=== PATIENT | female | born 1965 | race Hispanic/Latino ===

== ENCOUNTER 2020-09-27 13:19 | Emergency (ER) | payer MEDICAID ==
[~2020-09-27] VITALS: Ht 165.1 cm; Wt 86.2 kg
[2020-09-27 13:45] LABS: BASOPHILS % (AUTO) 0.4 % (0.0-5.0); EOSINOPHILS % (AUTO) 2.3 % (0.0-8.0); HEMATOCRIT 41.4 % (36-48); LYMPHOCYTES % (AUTO) 19.1 % (21.0-51.0); MEAN CORPUSCULAR HGB CONC 33.1 g/dL (32.0-36.0); MEAN CORPUSCULAR VOLUME 87.7 fL (79-99); MONOCYTES % (AUTO) 6.5 % (3.0-13.0); NEUTROPHILS % (AUTO) 71.3 % (40.0-77.0); PLATELET COUNT (AUTO) 201 K/uL (130-400); RED BLOOD CELL COUNT(AUTO) 4.72 MIL/uL (4.00-5.50); RED CELL DISTRIBUTION WIDTH 12.8 % (11.0-15.5); WHITE BLOOD COUNT (AUTO) 5.7 K/uL (4.8-10.8)
[2020-09-27 13:53] LABS: CREATININE 1.1 mg/dL (0.5-1.5); POTASSIUM 3.7 mmol/L (3.5-5.1)
[2020-09-27 13:58] LABS: ALBUMIN 4.2 g/dL (3.5-5.0); BILIRUBIN,TOTAL 0.6 mg/dL (0.2-1.0); TOTAL PROTEIN, SERUM 8.2 g/dL (6.0-8.3)
[2020-09-27 14:09] LABS: PARTIAL THROMBOPLASTIN TIME 25.4 SEC (26.3-35.5)
[2020-09-27] MEDS ORDERED: METHYLPREDNISOLONE SOD SUCC 125MG/2ML VIAL ONE (14:56)
[2020-09-27] MEDS ORDERED: NIFEDIPINE ER 30 MG TAB PO ONE (15:05)
[2020-09-27] MEDS ORDERED: NIFEDIPINE 10 MG CAP ONE (15:05)
[2020-09-27] MEDS ORDERED: ACYCLOVIR 800 MG TABLET PO SCH (15:30)
[2020-09-27] MEDS ORDERED: LABETALOL 20 MG/4 ML DISP.SYRIN IV ONE (15:33)
[2020-09-27 15:51] LABS: INR 0.98 (0.85-1.15); PROTHROMBIN TIME 10.6 SEC (9.6-11.6)
== END 2020-09-27 15:55 | disposition home or self-care (01) ==
LOC: EDH 13:19
DX: G51.0 Bell's palsy (principal); F20.0 Paranoid schizophrenia
CPT/HCPCS: 36415; 70450; 71045; 80053; 82550; 83721; 84484; 85025; 85610; 85730; 93005; 96374; 96375; 99285; J2930

== ENCOUNTER 2021-03-06 15:25 | Emergency (ER) | payer MEDICAID ==
[2021-03-06 16:01] LABS: BASOPHILS % (AUTO) 0.3 % (0.0-5.0); EOSINOPHILS % (AUTO) 0.8 % (0.0-8.0); LYMPHOCYTES % (AUTO) 10.3 % (21.0-51.0); MEAN CORPUSCULAR HEMOGLOBIN 29.6 pg (27.0-33.0); MEAN CORPUSCULAR HGB CONC 32.4 g/dL (32.0-36.0); MEAN CORPUSCULAR VOLUME 91.3 fL (79-99); NEUTROPHILS % (AUTO) 81.3 % (40.0-77.0); PLATELET COUNT (AUTO) 92 K/uL (130-400); RED CELL DISTRIBUTION WIDTH 13.7 % (11.0-15.5); WHITE BLOOD COUNT (AUTO) 3.9 K/uL (4.8-10.8)
[2021-03-06 16:11] LABS: RAPID GROUP A STREP NEGATIVE (NEGATIVE)
[2021-03-06 16:57] LABS: CREATININE 1.6 mg/dL (0.5-1.5); POTASSIUM 3.4 mmol/L (3.5-5.1)
[2021-03-06 17:03] LABS: ALBUMIN 4.3 g/dL (3.5-5.0); BILIRUBIN,TOTAL 0.6 mg/dL (0.2-1.0); TOTAL PROTEIN, SERUM 8.1 g/dL (6.0-8.3)
== END 2021-03-06 17:12 | disposition left against medical advice (07) ==
LOC: EDH 15:25
DX: R42 Dizziness and giddiness (principal); R53.1 Weakness; Z20.822 Contact with and (suspected) exposure to COVID-19
CPT/HCPCS: 36415; 71045; 80053; 82550; 84484; 85025; 87426; 87804; 87880; 96360

== ENCOUNTER 2022-08-07 03:29 | Emergency (ER) | payer MEDICAID ==
[2022-08-07 04:58] LABS: BASOPHILS % (AUTO) 0.2 % (0.0-5.0); EOSINOPHILS % (AUTO) 1.3 % (0.0-8.0); HEMATOCRIT 37.8 % (36-48); LYMPHOCYTES % (AUTO) 19.6 % (21.0-51.0); MEAN CORPUSCULAR HEMOGLOBIN 29.6 pg (27.0-33.0); MEAN CORPUSCULAR HGB CONC 33.9 g/dL (32.0-36.0); MEAN CORPUSCULAR VOLUME 87.5 fL (79-99); MONOCYTES % (AUTO) 7.8 % (3.0-13.0); NEUTROPHILS % (AUTO) 70.9 % (40.0-77.0); PLATELET COUNT (AUTO) 159 K/uL (130-400); RED BLOOD CELL COUNT(AUTO) 4.32 MIL/uL (4.00-5.50); RED CELL DISTRIBUTION WIDTH 13.2 % (11.0-15.5); WHITE BLOOD COUNT (AUTO) 5.4 K/uL (4.8-10.8)
[2022-08-07 05:09] LABS: CARBON DIOXIDE 32 mmol/L (21-32); CHLORIDE 104 mmol/L (101-111); CREATININE 0.9 mg/dL (0.5-1.5); GLOMERULAR FILTR. RATE CALC 69 mL/min (>60); GLUCOSE,RANDOM 94 mg/dL (70-105); POTASSIUM 3.7 mmol/L (3.5-5.1); SODIUM SERUM 140 mmol/L (136-145); UREA NITROGEN, BLOOD 21 mg/dL (7-18)
[2022-08-07 05:14] LABS: ALANINE AMINOTRANSFERASE 29 U/L (12-78); ALBUMIN 4.1 g/dL (3.5-5.0); ALCOHOL, BLOOD < 3 mg/dL (0-10); ASPARTATE AMINOTRANSFERASE 24 U/L (10-37); CREATINE KINASE, TOTAL 111 U/L (21-232); TOTAL PROTEIN, SERUM 7.7 g/dL (6.0-8.3)
[2022-08-07 05:46] LABS: AMMONIA < 3 umol/L (11-32)
[2022-08-07] MEDS ORDERED: IOHEXOL-350 75 ML VIAL IV ONE (06:29)
[2022-08-07 07:12] LABS: APPEARANCE,URINE CLEAR (CLEAR); BILIRUBIN,URINE NEGATIVE (NEGATIVE); COLOR,URINE COLORLESS (YELLOW); GLUCOSE, URINE (UA) NEGATIVE (NEGATIVE); KETONES,URINE NEGATIVE (NEGATIVE); LEUKOCYTE ESTERASE ,URINE NEGATIVE Leu/uL (NEGATIVE); NITRATE,URINE NEGATIVE (NEGATIVE); OCCULT BLOOD,URINE NEGATIVE (NEGATIVE); PROTEIN,URINE NEGATIVE (NEGATIVE); UROBILINOGEN,URINE 0.2 mg/dL (0.2-1.0)
[2022-08-07] MEDS ORDERED: NITROGLYCERIN 1GM OINT 1 INCH/1GM TD ONE ×2 (08:30)
[2022-08-07] MEDS ORDERED: ACETAMINOPHEN 325 MG TAB PO ONE (09:30)
[2022-08-07 10:32] VITALS: BP 164/90
== END 2022-08-07 10:34 | disposition home or self-care (01) ==
LOC: EDH 03:29
DX: I10 Essential (primary) hypertension (principal); M79.604 Pain in right leg; M79.605 Pain in left leg; M79.89 Other specified soft tissue disorders; Z59.00 Homelessness unspecified
CPT/HCPCS: 99285; 93970; 71275; 82550; 83735; 84484; 80053; 82140; 85025; 85378; 83605; 81003; 36415; Q9967